=== PATIENT | female | born 1980 | race Caucasian/White ===

== ENCOUNTER 2017-02-02 19:28 | Outpatient (CLI) | payer OTHER ==
[2017-02-02 20:13] VITALS: BMI 34.0
[2017-02-02 20:15] LABS: URINE BILIRUBIN NEGATIVE (NEGATIVE); URINE BLOOD NEGATIVE (NEGATIVE); URINE GLUCOSE (UA) NEGATIVE (NEGATIVE); URINE LEUKOCYTE ESTERASE 1+ (NEGATIVE); URINE NITRITE NEGATIVE (NEGATIVE); URINE PROTEIN NEGATIVE (NEGATIVE); URINE UROBILINOGEN NORMAL (0-1 mg/dl)
[2017-02-02 20:25] LABS: URINE APPEARANCE SL CLOUDY; URINE COLOR YELLOW
[2017-02-02 20:46] LABS: URINE RBC 0 /hpf; URINE WBC 0-2 /hpf
[2017-02-02 20:47] LABS: URINE BACTERIA RARE; URINE MUCUS 1+
[2017-02-02] MEDS ORDERED: IV START KIT ONE (21:00)
[2017-02-02] MEDS: LACTATED RINGERS 1,000 ML IV SCH ×2 (21:05→22:20)
--- NOTE | 2017-02-02 23:10 | PCMOBT ---
OB Triage - Subjective MATT STEWART (akbre ABBOTT) is a 36 year old at 24 who presents to L & D triage c/o pressure, cramping, no bleeding, no discharge. Busy, strenuous day , not drinking adequately. No sex relations lately. Review of Systems: Movement (Active baby boy.) - Physical Exam General: NAD HEENT: Normocephalic Neurological: Alert, Oriented X4 Respiratory: Clear to Auscultation Cardiac: Regular Rate Abdomen: Soft, Gravid (27weeks) Extremeties: No Deformities Contractions: Present (but looks like uterine irritability.) - Pelvic Exam External Genitalia: Normal Appearance Vaginal Vault: Normal Cervix: Closed and Long (high, presenting part not palpable.) Uterus: Gravid, Nontender - Heart Tones Baseline: 130 - Assessment/ Plan 36 year old G3 P at 24 here for pressure and cramps. Pt has 2 prior full term deliveries, 19 and 11 years ago. New FoB. Apparently pt has been busy and very active both cleaning at home and working at [employer]. Contractions seen on monitor which seemed to lessen with IV hydration. Exam reassuring, neg FFN. Pt discharged with instructions on staying hydrated and resting more. Note for work. Return precautions given: including that she should return if she has decreased movement, if she has LOF, vaginal bleeding or contractions such that she thinks she's in labor.
== END 2017-02-02 22:24 | disposition home or self-care (01) ==
LOC: FBC 19:28 → FBCOUT 19:28
PROVIDERS: ATTEND Obstetrics & Gynecology
DX: O26.893 Other specified pregnancy related conditions, third trimester (principal); R10.9 Unspecified abdominal pain; Z3A.26 26 weeks gestation of pregnancy
CPT/HCPCS: 96360; 96361; 82731; 87081; 81001; 59050; J7120; G0463